=== PATIENT | female | born 1965 | race Caucasian/White ===

== ENCOUNTER 2016-11-08 11:18 | Inpatient (IN) | payer BC ==
[~2016-11-08] VITALS: Ht 162.6 cm; Wt 110.0 kg
[~2016-11-08 11:18] MED LIST: ALEVE220 MG PO; ASPIRIN EC325 MG PO; ATORVASTATIN CA40 MG PO; CHANTIX1 MG PO; CLONAZEPAM1 MG PO; CLOPIDOGREL75 MG PO; COLACE100 MG PO; COMPAZINE10 MG PO; CYCLOBENZAPRINE10 MG PO; ELMIRON100 MG PO; FLEXERIL10 MG PO; HYCET 7.5 MG-3473 ML PO; HYDROCODON-ACE1 EAC7 PO; IBUPROFEN600 MG PO; LEVAQUIN500 MG PO; LEXAPRO10 MG PO; LISINOPRIL2.5 MG PO; LOPRESSOR25 MG PO; MAGIC MOUTHWASH PO; METAXALONE800 MG PO; MOTRIN400 MG PO; NEURONTIN300 MG PO; NEURONTIN800 MG PO; NITROSTAT0.4 MG SL; NYSTATIN100000 UN1 PO; OXYCODONE HCL15 MG PO; PERCOCET 5/31 TABLET PO; REQUIP1 MG PO; SIMVASTATIN40 MG PO; TOPROL XL25 MG PO; TRAMADOL HCL50 MG PO; TRAZODONE HCL50 MG PO; XANAX0.5 MG PO; ZANTAC150 MG PO
[2016-11-08 12:44] LABS: HEMATOCRIT 37.5 % (36.0-46.0); MCHC 33.1 G/DL (30.0-36.0); MCV 90.6 FL (83-99); MEAN PLAT.VOLUME 9.7 uM^3 (9.5-12.4); PLATELET COUNT 280 K/uL (156-360); RED BLOOD COUNT 4.14 M/uL (3.80-5.20); WHITE BLOOD COUNT 6.4 K/uL (4.1-10.2)
[2016-11-08 12:53] LABS: CHLORIDE 105 mEq/L (99-109); POTASSIUM 4.3 mEq/L (3.7-5.4); SODIUM 138 mEq/L (136-147)
[2016-11-08 12:55] LABS: GLUCOSE 84 mg/dL (70-99)
[2016-11-08 12:57] LABS: ANION GAP 8 MEQ/L (2-14)
[2016-11-08 12:59] LABS: GFR ESTIMATE (CALCULATED) > 59 mL/min/
[2016-11-08 13:00] LABS: UREA NITROGEN (BUN) 14 mg/dL (9-23)
[2016-11-08 15:09] LABS: D-DIMER ELISA 0.68 mg/L FEU (< 0.57)
[2016-11-08] MEDS ORDERED: LITE COAT ASPI325 M1 PO (18:38)
[2016-11-08 19:36] LABS: TROP-I INTERPRETATION NEGATIVE; TROPONIN-I < 0.01 ng/mL (0.0-0.30)
[2016-11-08 20:20] VITALS: BP 95/53
[2016-11-09] VITALS: BP 108/60
[2016-11-09 01:07] LABS: POINT-OF-CARE METER ID UU14188625
[2016-11-09 03:08] VITALS: BP 105/60
[2016-11-09 06:35] LABS: HEMATOCRIT 40.1 % (36.0-46.0); MCH 29.1 PG (29.0-34.0); MCHC 31.9 G/DL (30.0-36.0); MCV 91.1 FL (83-99); PLATELET COUNT 311 K/uL (156-360); RBC DIS.WIDTH-CV 14.1 % (11.8-14.6); RBC DIS.WIDTH-SD 47.8 % (39-53); WHITE BLOOD COUNT 11.4 K/uL (4.1-10.2)
[2016-11-09 06:56] LABS: ANION GAP 11 MEQ/L (2-14); CHLORIDE 109 MEQ/L (99-109); GFR ESTIMATE (CALCULATED) > 59 mL/min/; POTASSIUM 4.3 MEQ/L (3.7-5.4); SAMPLE HEMOLYSIS CHECK 0; SAMPLE ICTERIC CHECK 0; SAMPLE LIPEMIA CHECK 0; SODIUM 141 MEQ/L (136-147); UREA NITROGEN (BUN) 16 mg/dL (9-23)
[2016-11-09 07:02] LABS: GLUCOSE 170 mg/dL (70-99)
[2016-11-09 07:29] VITALS: BP 108/62
[2016-11-09 08:09] LABS: TROP-I INTERPRETATION NEGATIVE; TROPONIN-I < 0.01 ng/mL (0.0-0.30)
[2016-11-09 11:08] LABS: POINT-OF-CARE METER ID UU14188625
[2016-11-09 11:19] VITALS: BP 108/57
[2016-11-09 15:50] VITALS: BP 108/61
[2016-11-10] VITALS: BP 101/53
[2016-11-10 03:31] VITALS: BP 105/61
[2016-11-10 07:26] LABS: POINT-OF-CARE METER ID UU14188625
[2016-11-10 07:47] VITALS: BP 117/70
[2016-11-10 11:24] LABS: POINT-OF-CARE METER ID UU14188625
[2016-11-10 11:27] VITALS: BP 114/62
[2016-11-10] MEDS ORDERED: ROPINIROLE HCL1 MG PO (12:31)
[2016-11-10] MEDS ORDERED: SPIRIVA RESPIMAT4 GM IH (12:31)
[2016-11-10] MEDS ORDERED: PREDNISONE10 MG PO (12:31)
[2016-11-10] MEDS ORDERED: MUCINEX600 MG PO (12:31)
[2016-11-10] MEDS ORDERED: ADVAIR HFA120 INHALA IH (12:31)
[2016-11-10] MEDS ORDERED: CEFTIN500 MG PO (12:31)
== END 2016-11-10 14:25 | disposition home or self-care (01) | DRG 191 ==
LOC: EME 11:18 → 5SOUTH 17:53 → EDOF 17:53 → 5SOUTH 20:07
PROVIDERS: Hospitalist; Internal Medicine
PROC: 5A09357 Assistance with Respiratory Ventilation, Less than 24 Consecutive Hours, Continuous Positive Airway Pressure (ICD-10-PCS; principal; 2016-11-09)
DX: J44.1 Chronic obstructive pulmonary disease with (acute) exacerbation (principal); J44.0 Chronic obstructive pulmonary disease with (acute) lower respiratory infection; J20.9 Acute bronchitis, unspecified; I11.0 Hypertensive heart disease with heart failure; I50.9 Heart failure, unspecified; C34.91 Malignant neoplasm of unspecified part of right bronchus or lung; J98.11 Atelectasis; G47.33 Obstructive sleep apnea (adult) (pediatric); I95.9 Hypotension, unspecified; E78.5 Hyperlipidemia, unspecified; G25.81 Restless legs syndrome; I25.10 Atherosclerotic heart disease of native coronary artery without angina pectoris; I27.2 Other secondary pulmonary hypertension; M79.7 Fibromyalgia; G43.909 Migraine, unspecified, not intractable, without status migrainosus; E66.9 Obesity, unspecified; F17.200 Nicotine dependence, unspecified, uncomplicated; Z68.41 Body mass index [BMI] 40.0-44.9, adult; Z79.82 Long term (current) use of aspirin; Z95.5 Presence of coronary angioplasty implant and graft; I25.2 Old myocardial infarction
CPT/HCPCS: 71020; 71275; 80048; 82948; 83880; 84484; 85027; 85379; 93005; 93306; 94640; 94640 76; 94660; 94799; 99202; 99281; 99285; J0456; J0696; J1644; J1940; J2920; J7030; J7050; J7512